=== PATIENT | female | born 1980 | race Caucasian/White ===

== ENCOUNTER 2018-04-21 09:56 | Emergency (ER) | payer MEDICAID ==
[~2018-04-21] VITALS: Ht 167.6 cm; Wt 98.0 kg
[~2018-04-21 09:56] MED LIST: CLIN300C85 PO; CYCL-1 PO; HYDR-569 PO; METH-360 PO
[2018-04-21 09:59] VITALS: BP 145/82
== END 2018-04-21 10:46 | disposition home or self-care (01) ==
LOC: ER 09:57
DX: S61.216D Laceration without foreign body of right little finger without damage to nail, subsequent encounter (principal); J45.909 Unspecified asthma, uncomplicated; G89.29 Other chronic pain; F12.90 Cannabis use, unspecified, uncomplicated; Z79.2 Long term (current) use of antibiotics; Z79.899 Other long term (current) drug therapy; Z90.49 Acquired absence of other specified parts of digestive tract; Z98.890 Other specified postprocedural states; Z90.89 Acquired absence of other organs; Z88.0 Allergy status to penicillin; Z91.030 Bee allergy status; X58.XXXD Exposure to other specified factors, subsequent encounter
CPT/HCPCS: 99284

== ENCOUNTER 2018-07-06 10:03 | Emergency (ER) | payer MEDICAID, OTHER ==
[~2018-07-06] VITALS: Ht 167.6 cm; Wt 96.7 kg
[~2018-07-06 10:03] MED LIST changes: +HYDR-4383 PO; -HYDR-569 PO
[2018-07-06 10:10] VITALS: BP 125/77
[2018-07-06] MEDS ORDERED: NAPR-56 PO (11:00)
== END 2018-07-06 11:55 | disposition home or self-care (01) ==
LOC: ER 10:03
DX: M72.2 Plantar fascial fibromatosis (principal); J45.909 Unspecified asthma, uncomplicated; G89.29 Other chronic pain; F12.90 Cannabis use, unspecified, uncomplicated; Z90.49 Acquired absence of other specified parts of digestive tract; Z88.0 Allergy status to penicillin; Z91.030 Bee allergy status; Z79.2 Long term (current) use of antibiotics; Z79.899 Other long term (current) drug therapy
CPT/HCPCS: 73630; 99284

== ENCOUNTER 2022-04-03 15:17 | Emergency (ER) | payer MEDICAID ==
[~2022-04-03] VITALS: Ht 170.2 cm; Wt 97.7 kg
[~2022-04-03 15:17] MED LIST changes: +CLIN-97 PO; -CLIN300C85 PO
[2022-04-03] MEDS ORDERED: epiNEPHrine 0.1mg/ml 10ml syringe ONE (15:23)
[2022-04-03] MEDS ORDERED: epiNEPHrine 1 mg/ml inj ONE (15:24)
[2022-04-03] MEDS ORDERED: normal saline 1000ML IV soln IVB STA (15:29)
--- NOTE | 2022-04-03 15:29 | NUR ---
PATIENT STATES IMPROVEMENT WITH EPI IM GIVEN PER MD ORDER (SEE EMAR), MD AT BEDSIDE.
[2022-04-03] MEDS ORDERED: methylPREDNISolone sod succ 125mg/2ml vial IV ONE (15:30)
[2022-04-03] MEDS ORDERED: famotidine/PF 10 mg/ml inj IV ONE (15:30)
[2022-04-03] MEDS ORDERED: diphenhydrAMINE 50 mg/ml inj IV ONE (15:30)
[2022-04-03] MEDS ORDERED: EPIN0.3P3 IM (17:23)
[2022-04-03 18:08] VITALS: BP 128/79
== END 2022-04-03 18:14 | disposition home or self-care (01) ==
LOC: ER 15:18
DX: T78.2XXA Anaphylactic shock, unspecified, initial encounter (principal); G89.29 Other chronic pain; M54.9 Dorsalgia, unspecified; F12.10 Cannabis abuse, uncomplicated; Z98.890 Other specified postprocedural states; Z88.0 Allergy status to penicillin; Z79.899 Other long term (current) drug therapy; Z91.030 Bee allergy status
CPT/HCPCS: 93005; 96361; 96374; 96375; 99291; J0171; J1200; J2930; J3490; J7030

== ENCOUNTER 2022-05-09 17:24 | Emergency (ER) | payer MEDICAID ==
[~2022-05-09] VITALS: Ht 170.2 cm; Wt 97.7 kg
[~2022-05-09 17:24] MED LIST changes: +EPIN0.3P3 IM
[2022-05-09 17:28] VITALS: BP 156/63
[2022-05-09] MEDS ORDERED: HYDROcodone/acetaminophen 5mg/325mg tablet PO ONE (19:10)
[2022-05-09] MEDS ORDERED: ondansetron 4mg rapidly disintigrating tab PO ONE (19:10)
[2022-05-09] MEDS ORDERED: LIDOcaine 1% W/epiNEPHrine 1:100,000 20ml vial SQ ONE (19:10)
[2022-05-09] MEDS ORDERED: LIDOCAINE 1%/EPI 1:100,000 inj. 10 ML multi-dose vial SQ ONE (19:20)
== END 2022-05-09 21:02 | disposition home or self-care (01) ==
LOC: ER 17:24
DX: S61.411A Laceration without foreign body of right hand, initial encounter (principal); G89.29 Other chronic pain; M54.9 Dorsalgia, unspecified; J45.909 Unspecified asthma, uncomplicated; F12.10 Cannabis abuse, uncomplicated; Z90.49 Acquired absence of other specified parts of digestive tract; Z88.0 Allergy status to penicillin; Z79.899 Other long term (current) drug therapy; W45.8XXA Other foreign body or object entering through skin, initial encounter; Y93.89 Activity, other specified; Y92.89 Other specified places as the place of occurrence of the external cause; Y99.8 Other external cause status
CPT/HCPCS: 12002; 73120; 99283; A6258; A6449

== ENCOUNTER 2022-05-23 15:03 | Emergency (ER) | payer MEDICAID ==
[~2022-05-23] VITALS: Ht 170.2 cm; Wt 95.9 kg
[2022-05-23 15:05] VITALS: BP 127/76
--- NOTE | 2022-05-23 17:30 | NUR ---
15 sutures removed from rt wrist. pt tolerated procedure well with no verbal complaints.
== END 2022-05-23 18:14 | disposition home or self-care (01) ==
LOC: ER 15:03
DX: S61.511D Laceration without foreign body of right wrist, subsequent encounter (principal); Z48.00 Encounter for change or removal of nonsurgical wound dressing; M54.9 Dorsalgia, unspecified; G89.29 Other chronic pain; J45.909 Unspecified asthma, uncomplicated; Z88.0 Allergy status to penicillin; Z79.899 Other long term (current) drug therapy; Z90.49 Acquired absence of other specified parts of digestive tract; X58.XXXD Exposure to other specified factors, subsequent encounter; Z79.1 Long term (current) use of non-steroidal anti-inflammatories (NSAID)
CPT/HCPCS: 99282